=== PATIENT | female | born 1955 | race Caucasian/White ===

== ENCOUNTER 2021-05-22 09:48 | Observation (INO) | payer MEDICARE ==
[~2021-05-22] VITALS: Ht 160 cm; Wt 90.7 kg
[~2021-05-22 09:48] MED LIST: ANTIVERT 25MG T25 MG PO; PROTONIX40 MG PO; ZOFRAN4 MG PO
[2021-05-22 10:40] LABS: HEMOGLOBIN 16.3 gm/dl (12.3-15.3); RED BLOOD COUNT 4.93 M/UL (4.00-5.10)
[2021-05-22 12:08] LABS: BUN/CREATININE RATIO 22 (0-10)
[2021-05-23 04:44] LABS: BUN/CREATININE RATIO 27 (0-10)
[2021-05-23 05:00] LABS: WHITE BLOOD COUNT 4.5 K/UL (4.5-11.0)
[2021-05-23 05:01] LABS: HEMOGLOBIN 15.1 gm/dl (12.3-15.3); RED BLOOD COUNT 4.41 M/UL (4.00-5.10)
[2021-05-23] MEDS ORDERED: CLONAZEPAM1 MG PO (11:21)
[2021-05-23] MEDS ORDERED: TYLENOL EXTRA500 MG PO (11:22)
[2021-05-23] MEDS ORDERED: PROAIR HFA8.5 GM INH (11:22)
[2021-05-23] MEDS ORDERED: ADVAIR 250-501 EACH INH (11:22)
[2021-05-23] MEDS ORDERED: VITAMIN B-12500 MCG PO (11:23)
--- NOTE | 2021-05-23 17:07 | NUR ---
1700: AMBULATED PATIENT WITHOUT OXYGEN , PATIENT DESATS DOWN TO 85% ON ROOM AIR. DR GALLEGOS NOTIFIED.
[2021-05-23] MEDS ORDERED: VITAMIN B-1100 M1 PO (17:15)
[2021-05-23] MEDS ORDERED: TAB-A-VITE TA400 MC1 PO (17:15)
[2021-05-23] MEDS ORDERED: IPRAT-ALBUT 0.5-3 ML NEB (17:15)
[2021-05-23] MEDS ORDERED: MEDROL DOSEPAK 24 MG PO (17:22)
[2021-05-23] MEDS ORDERED: AMOX TR-K CLV1 EAC4 PO (17:22)
[2021-05-23] MEDS ORDERED: PULMICORT0.5 MG/21 INH (17:22)
[2021-05-23] MEDS ORDERED: NICOTINE PATCH1 EAC2 TOP (17:22)
[2021-05-23] MEDS ORDERED: LEVOFLOXACIN750 MG PO (17:22)
[2021-05-23] MEDS ORDERED: HYDROCODON-ACE1 EAC4 PO (19:05)
== END 2021-05-23 19:27 | disposition home or self-care (01) ==
LOC: ER1 09:48 → CDU 17:02 → M/S 05-23 09:41
PROVIDERS: Emergency Medicine; ADMIT Internal Medicine
DX: J96.01 Acute respiratory failure with hypoxia (principal); Z20.822 Contact with and (suspected) exposure to COVID-19; J44.1 Chronic obstructive pulmonary disease with (acute) exacerbation; F41.9 Anxiety disorder, unspecified; F10.10 Alcohol abuse, uncomplicated; I77.811 Abdominal aortic ectasia; F17.210 Nicotine dependence, cigarettes, uncomplicated; R91.8 Other nonspecific abnormal finding of lung field; R91.1 Solitary pulmonary nodule; E87.1 Hypo-osmolality and hyponatremia; G89.4 Chronic pain syndrome; M54.50 Low back pain, unspecified; Z79.52 Long term (current) use of systemic steroids; Z79.899 Other long term (current) drug therapy
CPT/HCPCS: ECHO; 0240U; 36415; 36600; 71045; 71046; 72131; 78580; 80053; 81001; 82550; 82553; 82803; 83735; 83880; 84295; 84484; 85025; 85027; 85379; 87040; 93005; 93306; 93970; 94640; 94664; 94760; 96372; 96374; 96375; 96376; 99285; A9540; G0378; J0696; J1650; J2270; J2405; J2930; J7030; Q9967

== ENCOUNTER 2021-06-11 11:42 | Inpatient (IN) | payer MEDICARE ==
[~2021-06-11] VITALS: Ht 160 cm; Wt 92.1 kg
[~2021-06-11 11:42] MED LIST changes: +ADVAIR 250-501 EACH INH; +AMOX TR-K CLV1 EAC4 PO; +CLONAZEPAM1 MG PO; +HYDROCODON-ACE1 EAC4 PO; +IPRAT-ALBUT 0.5-3 ML NEB; +LEVOFLOXACIN750 MG PO; +LIDOCAINE TOP; +MEDROL DOSEPAK 24 MG PO; +NICOTINE PATCH1 EAC2 TOP; +PROAIR HFA8.5 GM INH; +PULMICORT0.5 MG/21 INH; +TAB-A-VITE TA400 MC1 PO; +TYLENOL EXTRA500 MG PO; +VITAMIN B-1100 M1 PO; +VITAMIN B-12500 MCG PO
[2021-06-11 15:37] LABS: HEMOGLOBIN 14.4 gm/dl (12.3-15.3); RED BLOOD COUNT 4.26 M/UL (4.00-5.10); WHITE BLOOD COUNT 8.9 K/UL (4.5-11.0)
[2021-06-11 16:00] LABS: BUN/CREATININE RATIO 22 (0-10)
[2021-06-12 02:44] LABS: HEMOGLOBIN 14.5 gm/dl (12.3-15.3); RED BLOOD COUNT 4.37 M/UL (4.00-5.10); WHITE BLOOD COUNT 8.1 K/UL (4.5-11.0)
[2021-06-12 03:16] LABS: BUN/CREATININE RATIO 23 (0-10)
[2021-06-13 03:38] LABS: HEMOGLOBIN 13.8 gm/dl (12.3-15.3); RED BLOOD COUNT 4.07 M/UL (4.00-5.10); WHITE BLOOD COUNT 6.1 K/UL (4.5-11.0)
[2021-06-13 04:12] LABS: BUN/CREATININE RATIO 20 (0-10)
[2021-06-15] MEDS ORDERED: HYDROCODON-ACE1 EAC4 PO (15:35)
== END 2021-06-15 17:38 | disposition home or self-care (01) | DRG 552 ==
LOC: ER1 11:42 → M/S 15:11 → CDU 15:11 → M/S 16:22
PROVIDERS: Internal Medicine; Physician Assistant; ADMIT Internal Medicine Infectious Disease
DX: S22.059A Unspecified fracture of T5-T6 vertebra, initial encounter for closed fracture (principal); E87.1 Hypo-osmolality and hyponatremia; W19.XXXA Unspecified fall, initial encounter; J44.9 Chronic obstructive pulmonary disease, unspecified; G89.4 Chronic pain syndrome; E66.9 Obesity, unspecified; Z20.822 Contact with and (suspected) exposure to COVID-19; F17.200 Nicotine dependence, unspecified, uncomplicated; F41.9 Anxiety disorder, unspecified; Z90.49 Acquired absence of other specified parts of digestive tract; Z98.890 Other specified postprocedural states; Z83.3 Family history of diabetes mellitus; Z82.49 Family history of ischemic heart disease and other diseases of the circulatory system; Z68.30 Body mass index [BMI] 30.0-30.9, adult
CPT/HCPCS: 36415; 72128; 72131; 80048; 80053; 80307; 85025; 94640; 94664; 94760; 96372; 96374; 96375; 96376; 97116-GP-CQ; 97162; 97166; 97530; 97530-GP-CQ; 97535; 99285; G0378; G0480; J1170; J2270; U0002

== ENCOUNTER → 2021-06-19 | Outpatient (CLI) | payer MEDICARE | LOC: HEART 5 11:24 | DX: R06.02 Shortness of breath (principal); R94.2 Abnormal results of pulmonary function studies | CPT/HCPCS: 94060; 94729 ==

== ENCOUNTER 2021-08-13 22:06 | Inpatient (IN) | payer MEDICARE ==
[~2021-08-13] VITALS: Ht 160 cm; Wt 86.2 kg
[2021-08-13 22:38] LABS: HEMOGLOBIN 13.3 gm/dl (12.3-15.3); RED BLOOD COUNT 4.42 M/UL (4.00-5.10); WHITE BLOOD COUNT 8.7 K/UL (4.5-11.0)
[2021-08-13 23:01] LABS: BUN/CREATININE RATIO 35 (0-10)
[2021-08-14 04:57] LABS: RED BLOOD COUNT 3.63 M/UL (4.00-5.10); WHITE BLOOD COUNT 9.7 K/UL (4.5-11.0)
[2021-08-14 05:35] LABS: BUN/CREATININE RATIO 39 (0-10)
[2021-08-14] MEDS ORDERED: TRAMADOL HCL50 MG PO (08:40)
[2021-08-14] MEDS ORDERED: PROAIR HFA8.5 GM INH (08:41)
[2021-08-14] MEDS ORDERED: PREGABALIN100 MG PO (08:41)
--- NOTE | 2021-08-14 13:03 | NUR ---
IS TEACHING PT DEMONSTRATED AND VERBALIZED UNDERSTANDIONG.
[2021-08-15 03:59] LABS: HEMOGLOBIN 10.1 gm/dl (12.3-15.3); RED BLOOD COUNT 3.35 M/UL (4.00-5.10); WHITE BLOOD COUNT 7.6 K/UL (4.5-11.0)
[2021-08-15 04:15] LABS: BUN/CREATININE RATIO 33 (0-10)
--- NOTE | 2021-08-15 15:51 | NUR ---
CT UP HERE TO GET PATIENT AT THIS TIME NOTED
[2021-08-16 03:55] LABS: HEMOGLOBIN 10.1 gm/dl (12.3-15.3); RED BLOOD COUNT 3.35 M/UL (4.00-5.10); WHITE BLOOD COUNT 7.3 K/UL (4.5-11.0)
[2021-08-16 04:36] LABS: BUN/CREATININE RATIO 19 (0-10)
[2021-08-17 03:57] LABS: HEMOGLOBIN 9.9 gm/dl (12.3-15.3); RED BLOOD COUNT 3.37 M/UL (4.00-5.10); WHITE BLOOD COUNT 6.5 K/UL (4.5-11.0)
[2021-08-17 04:01] LABS: BUN/CREATININE RATIO 30 (0-10)
[2021-08-18 14:34] LABS: HEMOGLOBIN 9.4 gm/dl (12.3-15.3); RED BLOOD COUNT 3.16 M/UL (4.00-5.10)
[2021-08-18 15:02] LABS: BUN/CREATININE RATIO 43 (0-10)
[2021-08-19 03:05] LABS: RED BLOOD COUNT 3.37 M/UL (4.00-5.10); WHITE BLOOD COUNT 9.5 K/UL (4.5-11.0)
[2021-08-19 03:46] LABS: BUN/CREATININE RATIO 41 (0-10)
[2021-08-20 02:55] LABS: HEMOGLOBIN 9.6 gm/dl (12.3-15.3); RED BLOOD COUNT 3.22 M/UL (4.00-5.10); WHITE BLOOD COUNT 9.2 K/UL (4.5-11.0)
[2021-08-20 03:42] LABS: BUN/CREATININE RATIO 36 (0-10)
[2021-08-21 02:56] LABS: HEMOGLOBIN 9.6 gm/dl (12.3-15.3); RED BLOOD COUNT 3.24 M/UL (4.00-5.10); WHITE BLOOD COUNT 8.1 K/UL (4.5-11.0)
[2021-08-21 03:16] LABS: BUN/CREATININE RATIO 35 (0-10)
[2021-08-22 02:57] LABS: HEMOGLOBIN 9.3 gm/dl (12.3-15.3); RED BLOOD COUNT 3.24 M/UL (4.00-5.10); WHITE BLOOD COUNT 8.3 K/UL (4.5-11.0)
[2021-08-22 03:34] LABS: BUN/CREATININE RATIO 29 (0-10)
[2021-08-23 02:50] LABS: HEMOGLOBIN 9.6 gm/dl (12.3-15.3); RED BLOOD COUNT 3.28 M/UL (4.00-5.10); WHITE BLOOD COUNT 7.7 K/UL (4.5-11.0)
[2021-08-23 03:05] LABS: BUN/CREATININE RATIO 28 (0-10)
[2021-08-23] MEDS ORDERED: VITAMIN B-1100 M1 PO (12:55)
[2021-08-23] MEDS ORDERED: HYDROCODON-ACE1 EAC2 PO (14:21)
[2021-08-23] MEDS ORDERED: DOCUSATE SODIU100 MG PO (14:21)
[2021-08-23] MEDS ORDERED: IPRAT-ALBUT 0.5-3 ML NEB (14:21)
--- NOTE | 2021-08-23 16:36 | NUR ---
DID PATENT EDUCATION AND DISHARGE AT 1436. AMBULANCE CALLED AT 1421 AND REPORT CALLED TO HOSPICE [id number]. WILL CONTINUE TO MONITOR.
== END 2021-08-23 18:43 | DRG 478 ==
LOC: ER1 22:06 → CDU 08-14 01:03 → M/S 08-14 01:03
PROVIDERS: Internal Medicine; Orthopaedic Surgery; ADMIT Internal Medicine
PROC: 0PBD0ZX Excision of Left Humeral Head, Open Approach, Diagnostic (ICD-10-PCS; 2021-08-17)
PROC: 0PSD04Z Reposition Left Humeral Head with Internal Fixation Device, Open Approach (ICD-10-PCS; principal; 2021-08-17 17:00)
DX: M84.422A Pathological fracture, left humerus, initial encounter for fracture (principal); N39.0 Urinary tract infection, site not specified; E44.0 Moderate protein-calorie malnutrition; E87.1 Hypo-osmolality and hyponatremia; D62 Acute posthemorrhagic anemia; E87.2 Acidosis; R65.10 Systemic inflammatory response syndrome (SIRS) of non-infectious origin without acute organ dysfunction; J44.9 Chronic obstructive pulmonary disease, unspecified; F17.210 Nicotine dependence, cigarettes, uncomplicated; R91.8 Other nonspecific abnormal finding of lung field; E87.6 Hypokalemia; M85.88 Other specified disorders of bone density and structure, other site; M54.9 Dorsalgia, unspecified; G89.29 Other chronic pain; F41.9 Anxiety disorder, unspecified; F10.10 Alcohol abuse, uncomplicated; Z90.49 Acquired absence of other specified parts of digestive tract; Z90.89 Acquired absence of other organs; Z82.49 Family history of ischemic heart disease and other diseases of the circulatory system; Z83.3 Family history of diabetes mellitus; Z79.899 Other long term (current) drug therapy; Z99.3 Dependence on wheelchair; Z98.890 Other specified postprocedural states
CPT/HCPCS: 36415; 51701; 71045; 72146; 72148; 73030; 73060; 73090; 73200; 76000; 80048; 80053; 81001; 82550; 82553; 83605; 83735; 84100; 84132; 84439; 84443; 84484; 85025; 85027; 85379; 85610; 86850; 86870; 86900; 86901; 86902; 86920; 86922; 87040; 87086; 93005; 93970; 94640; 94664; 94760; 96374; 96375; 97162; 97530; 97530-GP-CQ; 99285; C1713; J0690; J0696; J1100; J1170; J1650; J1885; J2001; J2270; J2405; J2704; J2710; J2795; J3010; J3370; J3475; J7030; J7120; U0002